=== PATIENT | male | born 1995 | race Caucasian/White ===

== ENCOUNTER 2021-08-19 00:42 | Emergency (ER) | payer BC ==
[~2021-08-19] VITALS: Ht 175.3 cm; Wt 65.9 kg
[2021-08-19 00:49] VITALS: BP 119/69
[2021-08-19] MEDS ORDERED: IBUPROFEN 400 MG TABLET. PO ONE (01:15)
[2021-08-19] MEDS ORDERED: LIDOCAINE 1%/EPI 1:100,000 20 ML VIAL. INJ ONE (01:15)
[2021-08-19] MEDS ORDERED: ACETAMINOPHEN 500 MG TABLET PO ONE (01:15)
--- NOTE | 2021-08-19 01:28 | PHYS DOC ---
Past Medical History Past Surgical History: No Surgical History Adult General Chief Complaint Chief Complaint: LACERATION/AVULSION HPI HPI 26-year-old male presents for evaluation of a head injury with laceration sustained prior to arrival. Patient's jumped on his back to do a cheerleading move and he fell forward, striking his left face on the ground. No loss of consciousness, nausea or vomiting or amnesia to events. Patient is alert, oriented x4, pleasantly and appropriately interactive, in no acute distress and ambulatory into the emergency department with a narrow, steady, non-ataxic gait. Has a superficial 2 cm laceration just above the left eyebrow. Mild associated abrasion. Tetanus up-to-date. No therapy for symptoms prior to arrival. Review of Systems Review of Systems A 12 point review of systems was completed and was negative except where noted in HPI above. Current Medications Current Medications Current Medications Medications (Trade) Dose Ordered Sig/Dre Start Time Stop Time Status Last Admin Dose Admin Acetaminophen (Tylenol) 1,000 mg 1X ONCE 08/19/21 01:15 08/19/21 01:16 DC 08/19/21 01:23 1,000 MG Ibuprofen (Motrin) 800 mg 1X ONCE 08/19/21 01:15 08/19/21 01:16 DC 08/19/21 01:24 800 MG Lidocaine/ Epinephrine (LIDOCAINE 1%-EPI 1:100,000 Multi-Dose) 20 ml 1X ONCE 08/19/21 01:15 08/19/21 01:16 DC Allergies Allergies Allergies Coded Allergies Type Severity Reaction Last Updated Verified No Known Drug Allergies 08/19/21 No Physical Exam Physical Exam 26-year-old male appearing nontoxic and in no acute distress. Head is normocephalic and with a mild abrasion and laceration (2 cm and linear) just above the left eyebrow. No periorbital contusion. No instability of the midface. No malocclusion. No hemotympanum bilaterally. No other signs basilar fracture. Neck is supple and nontender. Oropharynx is moist. Lungs are clear to auscultation at all stations. There is a normal S1 and S2 without rubs or gallops and capillary refill is appropriate, less than 2 seconds globally. Abdomen is soft, nontender and nondistended. Skin is warm and dry without cyanosis, clubbing or edema. Psychiatrically, the patient demonstrates appropriate mood and affect and is alert. Neurologically, patient moves all extremities equally, is alert and oriented x4 and no lateralizing deficits are seen. He ambulates with a narrow, steady, non-ataxic gait. Current Patient Data Vital Signs Vital Signs Date Time Temp Pulse Resp B/P (MAP) Pulse Ox O2 Delivery O2 Flow Rate FiO2 08/19/21 00:49 98.2 91 20 119/69 (86) 100 Room Air 98.2 EKG EKG [] Radiology/Procedures Radiology/Procedures Indication: [Laceration left forehead/eyebrow] Procedure: Laceration instilled with lidocaine 1% with epinephrine. The area was then copiously washed and disinfected. The laceration was closed with 11 5-0 Vicryl sutures. Total repaired wound length: 2.5cm The patient tolerated the procedure well. Complications: none. Course & Med Decision Making Course & Med Decision Making Vital signs and clinical examination are reassuring and neurologic examination is nonfocal. Isolated left forehead injury. No clear indication for brain neuroimaging. Will wash and disinfect laceration and repair with suture. Plan for home after that. Patient understands and agrees with this plan of care. 0208: Laceration repaired without complication as per procedure note. Patient tolerated well. Tetanus updated. Alert and oriented, ambulatory with a narrow, steady gait, neurologic examination remains nonfocal. Will discharge home to follow-up closely with primary care. Patient understands that if he feels worse instead of better or develops other new symptoms of concern that he will need to return to the emergency department immediately for reevaluation. All questions are answered. Dragon Disclaimer Dragon Disclaimer This electronic medical record was generated, in whole or in part, using a voice recognition dictation system. Departure Departure Impression: Primary Impression: Laceration of forehead without complication Disposition: 01 HOME / SELF CARE / HOMELESS Condition: IMPROVED Patient Instructions: Laceration Care, Adult Additional Instructions: Follow-up very closely with your primary care doctor in the office in the next 3 to 5 days for a reevaluation of your symptoms and a discussion of next best steps in care. Your stitches do not need to be taken out and should fall out or be absorbed within the next 1 to 2 weeks. Wash the area gently with soap and water but do not scrub. You may take ibuprofen and/or Tylenol as needed for any discomfort. You may apply Neosporin or bacitracin twice a day to prevent infection. Return to the emergency department right away for worsening symptoms of any kind or with any other new symptoms of concern. Problem Qualifiers Primary Impression: Laceration of forehead without complication Encounter type: initial encounter Qualified Codes: S01.81XA - Laceration without foreign body of other part of head, initial encounter DERRICK DIAZ MD Aug 19, 2021 01:28
[2021-08-19] MEDS ORDERED: DIPHTH,PERTUSS(ACELL),TET TOX 0.5 ML DISP.SYRIN. VAX IM ONE (02:15)
== END 2021-08-19 02:25 | disposition home or self-care (01) ==
LOC: ER 00:42
DX: S01.81XA Laceration without foreign body of other part of head, initial encounter (principal); W01.198A Fall on same level from slipping, tripping and stumbling with subsequent striking against other object, initial encounter; Y93.39 Activity, other involving climbing, rappelling and jumping off; Y92.89 Other specified places as the place of occurrence of the external cause; Y99.8 Other external cause status
CPT/HCPCS: 12011; 90471; 90715; 99283-25